=== PATIENT | male | born 1975 | race Caucasian/White ===

== ENCOUNTER 2017-09-20 10:42 | Emergency (ER) | payer OTHER ==
[~2017-09-20] VITALS: Ht 182.9 cm; Wt 124.7 kg
[2017-09-20 10:48] VITALS: BP 147/100
--- NOTE | 2017-09-20 10:57 | NUR ---
PT AMBULATED WITH W/C TO CHAIR D.
--- NOTE | 2017-09-20 11:04 | NUR ---
PT COMES TO ED C/O RT FOOT PAIN, BALL OF FOOT. -SWELLING, - DEFORMITY. PT STATES HE HAS A GOUT FLARE UP. PENDING MD PUENTE
[2017-09-20] MEDS ORDERED: HYDROcodone/APAP 5/325 MG 1 TAB TAB PO ONE (11:10)
[2017-09-20] MEDS ORDERED: KETOROLAC 30 MG/ML VIAL IM ONE (11:10)
[2017-09-20 12:23] VITALS: BP 133/89
--- NOTE | 2017-09-20 12:25 | NUR ---
Patient discharged with v/s stable. Written and verbal after care instructions given and explained. Patient alert, oriented and verbalized understanding of instructions. Ambulatory with steady gait. All questions addressed prior to discharge. ID band removed. Patient advised to follow up with PMD. Rx of NAPROSYN, NORCO given. Patient educated on indication of medication including possible reaction and side effects. Opportunity to ask questions provided and answered.
== END 2017-09-20 12:25 | disposition home or self-care (01) ==
LOC: MED 10:42
DX: M72.2 Plantar fascial fibromatosis (principal)
CPT/HCPCS: 73610; 73630; 93971; 96372; 99284; J1885

== ENCOUNTER 2017-11-05 10:23 | Emergency (ER) | payer OTHER ==
[~2017-11-05] VITALS: Ht 180.3 cm; Wt 124.7 kg
[2017-11-05 10:37] VITALS: BP 115/63
--- NOTE | 2017-11-05 10:40 | NUR ---
PT AMBULATED TO BED 9
--- NOTE | 2017-11-05 10:49 | NUR ---
42Y/M C/O RIGHT KNEE PAIN X 3 DAYS WITH PAIN WORSENING SINCE YESTERDAY, SWELLING AMBULATORY WITH SLOW STEADY GUARDED GAIT. AAOX4 PATIENT STATES PAIN OF 7/10 AT THIS TIME; PATIENT POSITIONED FOR COMFORT; HOB ELEVATED; BEDRAILS UP X1; BED DOWN. ER MD MADE AWARE OF PT STATUS.
[2017-11-05] MEDS ORDERED: IBUPROFEN 800 MG TAB PO ONE (11:25)
[2017-11-05 11:27] VITALS: BP 115/63
[2017-11-05] MEDS ORDERED: IBUPROFEN 800 MG TAB ONE (11:27)
--- NOTE | 2017-11-05 11:28 | NUR ---
Patient discharged with v/s stable. Written and verbal after care instructions given and explained. Patient alert, oriented and verbalized understanding of instructions. Ambulatory with steady gait. All questions addressed prior to discharge. ID band removed. Patient advised to follow up with PMD. Rx of ALLOPURINOL/NAPROXEN given. Patient educated on indication of medication including possible reaction and side effects. Opportunity to ask questions provided and answered.
== END 2017-11-05 11:28 | disposition home or self-care (01) ==
LOC: MED 10:23
DX: M10.9 Gout, unspecified (principal)
CPT/HCPCS: 99283

== ENCOUNTER 2017-11-08 13:50 | Emergency (ER) | payer OTHER ==
[~2017-11-08] VITALS: Ht 180.3 cm; Wt 126.1 kg
[2017-11-08 14:06] VITALS: BP 138/70
[2017-11-08] MEDS ORDERED: KETOROLAC 60 MG/2 ML VIAL IM ONE (15:45)
[2017-11-08 16:42] VITALS: BP 130/70
== END 2017-11-08 16:42 | disposition home or self-care (01) ==
LOC: MED 13:50
DX: M71.561 Other bursitis, not elsewhere classified, right knee (principal); F17.210 Nicotine dependence, cigarettes, uncomplicated
CPT/HCPCS: 73562; 96372; 99284; J1885